=== PATIENT | male | born 1970 | race Caucasian/White ===

== ENCOUNTER 2018-11-01 11:37 | Emergency (ER) | payer MEDICAID ==
[2018-11-01] MEDS: PROMETHAZINE/CODEINE 5ML CUP PO (12:07)
[2018-11-01] MEDS: KETOROLAC 60 MG INJ IM (12:07)
== END 2018-11-01 13:00 | disposition home or self-care (01) ==
LOC: FTE 11:37
DX: J11.1 Influenza due to unidentified influenza virus with other respiratory manifestations (principal)
CPT/HCPCS: 71045; 96372; 99284-25